=== PATIENT | female | born 1930 | race Caucasian/White ===

== ENCOUNTER 2016-09-08 21:43 | Inpatient (IN) | payer OTHER, MEDICARE ==
[~2016-09-08] VITALS: Ht 147.3 cm; Wt 44.9 kg
--- NOTE | ~2016-09-08 | HC ---
[facility] [place] [address] CONSULTATION Name: CIRILO POON Room #: 247-P ADM IN M.R.#: [id number] Admission: 09/09/16 Attend Phys: Magdalena Gonzalez Discharge: Date of : 29 Report #: [id number] THIS REPORT FOR: //name// CC: Carmelo Felton REASON FOR CONSULTATION: Bradycardia. HISTORY OF PRESENT ILLNESS: The patient is an 86-year-old woman with a history of remote 1990 mitral valve repair. She has permanent atrial fibrillation and has been maintained on warfarin therapy as well as very low dose carvedilol. She was admitted through the emergency department with a large amount of bright red blood per rectum. She has required operative management with administration of 2 units of packed cells, 4 units FFP. In the setting postoperatively, she has had intermittent pauses of her atrial fibrillation. This has been asymptomatic. She denies chest pain, pressure or ischemic type symptoms. She denies a history of near syncope or syncope. She lives in a [facility]. She has had no prior bleeding problems with warfarin. ALLERGIES: She is allergic to PENICILLIN. MEDICATIONS: Include Coumadin 5 mg daily, nifedipine XR 30 mg daily, digoxin 0.25 mg daily, and Carvedilol 25 mg twice daily PAST MEDICAL HISTORY: Medical records have been reviewed and include a history of remote mitral valve repair, permanent atrial fibrillation, appendectomy, scleroderma. 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 . FAMILY HISTORY: Unremarkable for premature coronary artery disease. REVIEW OF SYSTEMS: All systems negative except as that noted above. PHYSICAL EXAMINATION: GENERAL: A pleasant woman in no distress. VITAL SIGNS: Blood pressure is 120/60, heart rate of 80 and irregular, respirations unlabored at 18, 4 feet 10 inches tall, 99 pounds. HEENT: There are neither xanthelasma, subcutaneous xanthomata, oral mucosal or digital cyanosis or kyphoscoliosis present. CHEST: Reveals clear lung ling. CARDIOVASCULAR: Irregularly irregular rhythm with a 2/6 systolic murmur at the left sternal border. ABDOMEN: Soft and nontender. EXTREMITIES: Without cyanosis, clubbing or edema. Radial pulses are 2+. NEUROLOGIC: She is alert with a nonfocal exam. [facility] [address] [place] [address] CONSULTATION Name: CIRILO POON Room #: [facility]- ADM IN .R.#: [id number] Admission: 09/09/16 Attend Phys: Magdalena Gonzalez Discharge: Date of : 29 Report #: [id number] LABORATORY DATA: Sodium 132, potassium 4.3, creatinine 0.6. Troponin 0. INR of 2.1. White count 4.8, hemoglobin 11, hematocrit 32, platelet count 211. Tortuous aorta is noted in KUB. EKG, atrial fibrillation with LVH with repolarization abnormality. IMPRESSION: 1. Permanent atrial fibrillation. 2. Hemorrhoidal bleeding. 3. Hypertension. RECOMMENDATIONS: 1. Hold carvedilol dose right now. 2. Reverse coagulopathy. At this point, I suspect her intermittent bradycardia is related to a combination of factors including her recent surgery and a medication effect. There is no current indication for permanent pacing. We will follow along with you. Thank you for asking me to participate in her care. <ELECTRONICALLY SIGNED> By: Nicolas Torres MD, [facility] 09/10/16 0810 [id number] Nicolas Torres MD, FACC /nt
--- NOTE | ~2016-09-08 | H ---
[facility] [place] [address] [place] [address] HISTORY AND PHYSICAL Name: CIRILO POON Room #: 247-P ADM IN M.R.#: [id number] Admission: 09/09/16 Attend Phys: Magdalena Gonzalez Discharge: Date of : 29 Report #: [id number] THIS REPORT FOR: //name// CC: Carmelo Felton CHIEF COMPLAINT: GI bleeding. HISTORY OF PRESENT ILLNESS: The patient is an 86-year-old female who went to the ER with rectal bleeding. She noted bright red blood just about an hour or so before presenting to the ER. She also passed some nickel-sized clots. She apparently had a hemorrhoid banding as an outpatient on August 29. She has had some spotty bleeding. She does take Coumadin chronically. PAST MEDICAL HISTORY: Scleroderma, cerebrovascular accident, history of pneumonia and valvular heart disease. PAST SURGICAL HISTORY: Appendectomy. FAMILY HISTORY: Noncontributory. SOCIAL HISTORY: She lives with her . No chronic alcohol or tobacco use. ALLERGIES: PENICILLIN. MEDICATIONS: Aspirin 81 mg, Coumadin 5 mg, tramadol, venlafaxine, nifedipine XR 30 mg, omeprazole, digoxin 0.25 mg daily and at carvedilol 3.125 mg daily. REVIEW OF SYSTEMS: She denies headache, chest pain, shortness of breath, abdominal pain, nausea, vomiting, diarrhea, constipation, dysuria or syncope. PHYSICAL EXAMINATION: VITAL SIGNS: Temperature 37, pulse 84, respirations 17, blood pressure 167/85 and O2 sat 90% on room air. GENERAL: She is awake and alert, very hard of hearing. LUNGS: Clear. HEART: Regular. ABDOMEN: Soft. Normoactive bowel sounds. EXTREMITIES: No edema. LABORATORY DATA: INR is 2.1. Hemoglobin 11.4. Dr. Sherman has assessed her and took her back to the operating room and performed a repeat banding procedure to the hemorrhoids. Please see that separately dictated note. ASSESSMENT: 1. Lower gastrointestinal bleed. [facility] [address] [place] [address] HISTORY AND PHYSICAL Name: CIRILO POON Room #: [facility] IN .R.#: [id number] Admission: 09/09/16 Attend Phys: Magdalena Gonzalez Discharge: Date of : 29 Report #: [id number] 2. Internal hemorrhoids bleeding. 3. Chronic anticoagulation with Coumadin. PLAN: She will be watched in ICU additionally for any further signs of bleeding, advance diet as tolerated per surgery. If she is stable tomorrow, she can return home. <ELECTRONICALLY SIGNED> By: Ramirez Paredes MD 09/10/16 1101 1405 1448 Ramirez Paredes MD /nt
--- NOTE | ~2016-09-08 | D ---
[facility] [place] [address] DISCHARGE SUMMARY Name: CIRILO POON Room #: 429-P ADM IN M.R.#: [id number] Admission: 09/09/16 Attend Phys: Magdalena Gonzalez Discharge: Date of : 29 Report #: [id number] THIS REPORT FOR: //name// CC: Carmelo Felton FINAL DIAGNOSES: 1. Lower gastrointestinal bleed. 2. Internal hemorrhoids. 3. Atrial fibrillation. 4. Sick sinus syndrome. 5. Anticoagulation. 6. Acute blood loss anemia. HOSPITAL COURSE: The patient was admitted for lower GI bleed. She just had an internal hemorrhoid banding procedure done recently. She was taken to the operating room by Dr. Sherman and it appeared one of the bands had slipped off. The hemorrhoid in this was the source of bleeding. This was repaired. Please see his dictated report. She did not require a blood transfusion and hemoglobin remained stable around 8. She has had episodes of bradycardia and digoxin was discontinued. She had another episode of bradycardia with pauses, but asymptomatic and Coreg dose was stopped and then lowered to 12.5 mg twice a day. Coumadin was restarted. There was a concern of an episode of dysarthria, may be a TIA. However, MRI of the carotids and carotid ultrasound all were negative. I felt this was more related to a bradycardia episode. PHYSICAL EXAMINATION: GENERAL: On the day of discharge, she was awake and alert. Her speech was clear and she was in no distress. VITAL SIGNS: Stable. LUNGS: Clear. HEART: Irregular. ABDOMEN: Soft. Normoactive bowel sounds. EXTREMITIES: No edema. DISPOSITION: She will be discharged to home with diet and activity as tolerated. Follow up with Dr. Felton in one week and Dr. Torres in one week for Coumadin monitoring. Only medication change will be Coreg 12.5 mg twice a day and stop digoxin. <ELECTRONICALLY SIGNED> By: Ramirez Paredes MD 09/12/16 1221 1043 1115 Ramirez Paredes MD /nt
--- NOTE | ~2016-09-08 | EKG ---
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 : 1930 Requested By: Carmelo Felton Order Number: [id number] MD: Nicolas Torres Measurements Intervals [place] Rate: 57 P: 87 NV: 223 QRS: 69 QRSD: 96 T: 144 QT: 405 QTc: 395 Interpretive Statements Sinus bradycardia Prolonged [place] interval RSR' in V1 or V2, right VCD or RVH Probable LVH with secondary repol abnrm Compared to ECG 09/09/2016 18:40:32 Atrial premature complex(es) no longer present Electronically Signed On 09-12-2016 8:20:29 CDT by Nicolas Torres [email or web address] <ELECTRONICALLY SIGNED> By: Nicolas Torres MD, [facility] 09/12/16 0820 1224 1224 Nicolas Torres MD, [facility] /EPI
--- NOTE | ~2016-09-08 | EKG ---
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 : 1930 Requested By: Ramirez Paredes Order Number: [id number] MD: Nicolas Torres Measurements Intervals [place] Rate: 41 P: 139 KS: 266 QRS: 42 QRSD: 88 T: 142 QT: 426 QTc: 352 Interpretive Statements Sinus bradycardia Prolonged [place] interval RSR' in V1 or V2, right VCD or RVH LVH with secondary repolarization abnormality Compared to ECG 09/09/2016 18:40:32 No significant change was found Electronically Signed On 09-12-2016 8:23:23 CDT by Nicolas Torres [email or web address] <ELECTRONICALLY SIGNED> By: Nicolas Torres MD, [facility] 09/12/16 0823 1359 1359 Nicolas Torres MD, [facility] /EPI
--- NOTE | ~2016-09-08 | EKG ---
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: Magdalena GONZALEZ : 1930 Requested By: Vitaliy Vidal Order Number: [id number] MD: Nicolas Torres Measurements Intervals [place] Rate: 40 P: 105 [place]: 254 QRS: 78 QRSD: 83 T: 214 QT: 418 QTc: 341 Interpretive Statements Sinus bradycardia Atrial premature complexes in couplets Prolonged [place] interval LVH with secondary repolarization abnormality Anterior Q waves, possibly due to LVH Compared to ECG 09/08/2016 22:16:15 Atrial premature complexes are now present Electronically Signed On 09-10-2016 8:33:39 CDT by Nicolas Torres [email or web address] <ELECTRONICALLY SIGNED> By: Nicolas Torres MD, [facility] 09/10/16 0833 1840 1840 Nicolas Torres MD, [facility] /EPI
--- NOTE | ~2016-09-08 | EKG ---
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 : 1930 Requested By: Elif Phelps Order Number: [id number] MD: Nicolas Torres Measurements Intervals [place] Rate: 63 P: 107 [place]: 208 QRS: 79 QRSD: 81 T: 216 QT: 386 QTc: 396 Interpretive Statements Sinus rhythm Atrial premature complexes LVH with secondary repolarization abnormality No previous ECG available for comparison Electronically Signed On 09-09-2016 9:17:49 CDT by Nicolas Torres [email or web address] <ELECTRONICALLY SIGNED> By: Nicolas Torres MD, [facility] 09/09/16 0917 2216 2216 Nicolas Torres MD, [facility]ACC /EPI
--- NOTE | ~2016-09-08 | O ---
[facility] [place] [place] [address] OPERATIVE REPORT Name: CIRILO POON Room #: [facility] IN M.R.#: [id number] Admission: 09/09/16 Attend Phys: Magdalena Gonzalez Discharge: Date of : 29 Report #: [id number] THIS REPORT FOR: //name// CC: Carmelo Felton PREOPERATIVE DIAGNOSES: Rectal hemorrhage following recent hemorrhoidectomy. POSTOPERATIVE DIAGNOSES: Rectal hemorrhage following recent hemorrhoidectomy. PROCEDURE: Rectal examination under anesthesia with control of hemorrhage. SURGEON: Shan Sherman MD. DEFENCE FORCE SENIOR OFFICER: None. ANESTHESIA: General anesthetic, as well as local anesthetic. ESTIMATED BLOOD LOSS: 25 mL. SPECIMENS TO PATHOLOGY: None. COMPLICATIONS: None. INDICATION FOR PROCEDURE: The patient is a very pleasant 86-year-old female, who recently underwent an office procedure at an outside facility, which was a hemorrhoidectomy, apparently with banding. The patient is on Coumadin for chronic atrial fibrillation and was noted to have elevated INR associated with this. She was admitted on approximately 09/08/2016 with significant rectal hemorrhage. She required blood transfusion and FFP was also given to correct her INR. General Surgery was consulted as the patient's initial operating surgeon and was unavailable, after appropriate resuscitation, a decision was made to proceed with rectal examination under anesthetic, with control of rectal hemorrhage. This was because despite efforts of packing with gel foam, she showed signs of active ongoing hemorrhage. Detailed discussion of the risks and benefits of the procedure was held with the patient, and all questions were answered to her satisfaction. Risks including ongoing bleeding, need for future procedure, stricture, postoperative pain, infection, and other unforeseen potential complications were discussed. Written informed consent was obtained. DESCRIPTION OF PROCEDURE: The patient was brought to the operating room and placed in the supine position. A timeout was taken to verify the patient's identity and to plan the procedure. SCDs were in place in the lower extremities bilaterally. Preoperative antibiotics were administered. Anesthesia was induced. The patient was intubated. The patient was then placed in the lithotomy position. Perineum and perianal skin was sterilely prepped and draped in the standard fashion. Speculum was inserted carefully, and examination of the anal canal and rectal mucosa was performed. There was a site of active [address] [address] OPERATIVE REPORT Name: CIRILO POON Room #: 247-P ADM IN M.R.#: [id number] Admission: 09/09/16 Attend Phys: Magdalena Gonzalez Discharge: Date of : 29 Report #: [id number] bleeding at the 11'o clock position with patient in lithotomy. This was an ulceration measuring approximately 1 cm x 2 cm. This did not appear to be arterial but was persistent venous oozing, that was brisk. This was consistent with the site of previous band hemorrhoid ligation. The mucosa was grasped with rat tooth forceps and was approximated with longitudinally oriented 2-0 and 3-0 interrupted chromic gut suture. Hemostasis was noted. The mucosa was infiltrated with 0.5% Marcaine with epinephrine. Surgicel was placed against the site of previous hemorrhage, and the rectal canal was packed with gel foam, soaked with viscous lidocaine. Hemostasis was verified. All counts were correct at the end of the case, and all instrumentation had been extracted and accounted for. At this point, the case was ended. The patient was placed back in supine position. She was then extubated and taken to the postoperative care unit in stable condition. ESTIMATED BLOOD LOSS: 25 mL, which essentially was the coagulum, which was already in the rectum, at the beginning of the operation, which was suctioned clear. By: 0834 1031 Shan Sherman MD /nt
--- NOTE | ~2016-09-08 | HC ---
[facility] [place] [address] [place] [address] CONSULTATION Name: CIRILO POON Room #: 247-P ADM IN M.R.#: [id number] Admission: 09/09/16 Attend Phys: Magdalena Gonzalez Discharge: Date of : 29 Report #: [id number] THIS REPORT FOR: //name// CC: Carmelo Felton DATE OF SERVICE: 09/09/2016 REFERRING PROVIDER: Urban Felton MD REASON FOR CONSULTATION: Rectal hemorrhage. HISTORY OF PRESENT ILLNESS: The patient is an 86-year-old female who presented to the emergency room with a large amount of bright red blood per rectum. The patient reports that she underwent in-office hemorrhoid surgery on 08/29/2016, by Dr. Elvis Adams and has had spotting since surgery. The patient does take Coumadin and as her bleeding was so severe, she presented to the emergency room for evaluation. In the emergency room, the patient was seen to have an overt bleed from just inside the anus and Dr. Adams was contacted, but unfortunately was out of town with no arranged coverage for his practice. As such, I was contacted being the on-call general surgeon to assist in management. As the patient was actively bleeding, I instructed the emergency room physician to place a rolled up Gelfoam soaked in thrombin in the patient's rectum and hold pressure. Reportedly, the bleeding subsided and the patient has now been admitted and transferred to the ICU where I was asked to evaluate from a surgical standpoint. PAST MEDICAL HISTORY: Hypertension, chronic pain, and heart murmur as well as GERD. HOME MEDICATIONS: Omeprazole, Coumadin, Ultram, nifedipine, and carvedilol. ALLERGIES: No known drug allergies. SOCIAL HISTORY: The patient does not utilize tobacco, alcohol, or illicit drugs. FAMILY HISTORY: Reviewed and noncontributory. REVIEW OF SYSTEMS: GENERAL: The patient denies nocturnal fevers or chills. HEENT: No change in vision or change in hearing. NECK: No swelling or difficulty swallowing. HEART: No chest pain or palpitations. LUNGS: No cough or shortness of breath. ABDOMEN: No nausea and no vomiting. GENITOURINARY: No dysuria or hematuria. [facility] [address] [place] [address] CONSULTATION Name: CIRILO POON Room #: 247-P [facility] IN M.R.#: [id number] Admission: 09/09/16 Attend Phys: Magdalena Gonzalez Discharge: Date of : 29 Report #: [id number] ENDOCRINE: No polyuria or polydipsia. HEMATOLOGIC: No history of bleeding or easy bruising. EXTREMITIES: No history weakness or limited range of motion. NEUROLOGIC: No history of syncope or near syncopal episodes. SKIN AND INTEGUMENT: No history of abnormal lesions or moles. PHYSICAL EXAMINATION: VITAL SIGNS: Temperature 98.6, pulse 84, respirations 17, blood pressure 167/85, she stands 4 feet 10 inches tall and weighs 99 pounds. GENERAL: She is alert and oriented, in no acute distress. HEENT: Normocephalic, atraumatic. Pupils are equal, round, and reactive to light. NECK: Supple without lymphadenopathy. Trachea midline. HEART: Regular rate and rhythm with a 3/6 ejection murmur in the left sternal border. LUNGS: Clear to auscultation bilaterally. ABDOMEN: Soft, nontender, and nondistended. GENITOURINARY: Normal external female genitalia. EXTREMITIES: No clubbing, cyanosis, or edema. NEUROLOGIC: Cranial nerves 2-12 are grossly intact. PSYCHIATRIC: Normal mood and affect. SKIN AND INTEGUMENT: No abnormal lesions or moles. RECTAL: Shows a Gelfoam in place with no active bleeding whatsoever. LABORATORY AND X-RAY DATA: CBC showed a white blood cell count of 4.8 thousand, current hemoglobin is 11.4, and platelets 211,000. Creatinine 0.6. Liver function enzymes are normal. INR was 2.7 with a PTT of 42.8. ASSESSMENT AND PLAN: This is an 86-year-old female who is approximately 11 days out from some sort of in-office hemorrhoidectomy procedure. I am not sure if this was a true excisional procedure or rubber band ligation of an internal hemorrhoid as the patient cannot give me specifics and there was no operative report in our system since it was done in the office by Dr. Elvis Adams. Nonetheless, there did appear to be bleeding from the rectum that has now stopped with pressure and Gelfoam application. My recommendation at the present time is to continue to monitor H and H, let her have diet as tolerated and if she rebleed, she may necessitate proceeding to the operating room for exam under anesthesia for definitive control. I sincerely appreciate this consult. I will follow along and leave any further recommendations in the patient's chart as appropriate. <ELECTRONICALLY SIGNED> By: Phi Conte MD, FACS 09/09/16 1504 0901 1127 Phi Conte MD, FACS /nt
--- NOTE | ~2016-09-08 | HC ---
[facility] [place] [address] CONSULTATION Name: CIRILO POON Room #: 429-P [facility] M.R.#: [id number] Admission: 09/09/16 Attend Phys: Magdalena Gonzalez Discharge: 09/12/16 Date of : 28 Report #: [id number] THIS REPORT FOR: //name// CC: Carmelo Felton DATE OF SERVICE: 09/11/2016 HISTORY OF PRESENT ILLNESS: This is an 86-year-old female patient who was admitted with a complicated history. Neurological consultation is being requested for an episode of speech difficulty she had. Nurses noticed that she garbled her words this afternoon. She does not remember much about it. It lasted for a short period of time. She said she never had this kind of episode before. She does not know what brought it on. It basically came in suddenly and then it resolves suddenly. REVIEW OF SYSTEMS: Complicated. This patient has a history of atrial fibrillation. She is on chronic anticoagulation. During this hospitalization, she had episodes of bradycardia. She also has GI bleeding. Therefore, Coumadin has been discontinued and it was going to be restarted. When this episode occurred, her hemoglobin also fell from 8.1 to 7.6. She feels back to her baseline now. 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 She does not complain of any new eye, ENT, respiratory, , musculoskeletal, constitutional, dermatological, hematological, psychiatric, throat, endocrine. Allergic symptom associated with present symptomatology. PAST MEDICAL HISTORY: Positive for atrial fibrillation. FAMILY HISTORY: Negative for early age stroke. SOCIAL HISTORY: The patient does not smoke or drink alcohol. PHYSICAL EXAMINATION: Indicate she is alert. She is a responsive. She is oriented. Her memory and fund of knowledge is poor. Her speech, concentration looks intact. Cranial nerve examination 2-12 is unremarkable. She has symmetrical strength, sensation, reflexes and tone in all 4 extremities. There is no cerebellar sign. There is no carotid bruit. There is no meningeal sign. She is a thin built individual who does not have any dysmorphic features of eyes, ears and face. Her hearing and vision looks adequate. She does not have a thyroid mass. She does have a murmur in the heart. Heart sounds looks unremarkable. She has prominent atrial fibrillation. There is no respiratory difficulty and there is no rhonchi on either side. Her pulses are palpable. She has no edema, cyanosis or jaundice. Vital signs indicate a blood pressure of 121/56, respirations 18, pulse is 81, temperature is 98.1. LABORATORY DATA: Indicate a hemoglobin has dropped to 7.6 and presently she is getting transfusion. Her platelet count is low at 131. Her sodium is also low [address] [address] CONSULTATION Name: CIRILO POON Room #: 429-P [facility] M.R.#: [id number] Admission: 09/09/16 Attend Phys: Magdalena Gonzalez Discharge: 09/12/16 Date of : 28 Report #: [id number] at 132. She did have a CT scan of the head and that was reviewed and that does not show any acute abnormality. IMPRESSION: 1. This patient's episode is consistent with a transient ischemic attack. She is not anticoagulated at the moment. It is possible she threw a small emboli and it may or may not have caused any stroke. I think it will be desirable to confirm that because if it is a small stroke. They are typically embolic strokes and they tend to become hemorrhagic. 2. We will rule out any carotid stenosis by doing a carotid Doppler in this patient. 3. She is slightly hyponatremic. 4. She has anemia. 5. I am not sure she is a candidate for any intervention even we find anything in this patient. She is not at TPA candidate because she is having active bleeding and she will not be intervention candidate because her score is a bit too low. Her platelet is low and that will be partly protected from cardioembolic phenomenon. I will suggest some workup for above. RECOMMENDATIONS: 1. MRI of the brain. 2. MRA of the head. 3. Few blood workup as ordered. 4. Start anticoagulation as soon as seemed reasonable. 5. Continue management of atrial fibrillation per cardiology. We will look at the patient's MRI and a carotid Doppler and follow up this patient with you. Thank you very much for this referral. <ELECTRONICALLY SIGNED> By: Marlon Jones MD 09/13/16 [id number] Marlon Jones MD /nt
[2016-09-08 22:00] VITALS: BP 146/68
[2016-09-08 22:27] LABS: ABSOLUTE NEUTROPHILS 3.1 thou/uL (1.4-8.2); BASOPHILS 0.8 % (0.0-2.0); EOSINOPHILS 2.8 % (0.0-3.0); HEMATOCRIT 32.4 % (37.0-47.0); LYMPHOCYTES 20.4 % (24.0-44.0); MCH 30.6 pg (26.0-34.0); MCHC 33.8 g/dL (28.0-37.0); MCV 90.5 fL (80.0-100.0); MONOCYTES 10.5 % (1.0-8.0); PLATELET COUNT 211 thou/uL (150-400); POLYS 65.5 % (36.0-66.0); RBC 3.58 mil/uL (4.20-5.00); RDW 13.4 % (10.5-14.5); WBC 4.8 thou/uL (4.0-11.0)
[2016-09-08] MEDS ORDERED: ULTRAM 50MG TAB50 MG PO (22:27)
[2016-09-08] MEDS ORDERED: OMEPRAZOLE10 MG PO (22:27)
[2016-09-08] MEDS ORDERED: COUMADIN 5 MG TA5 M1 PO (22:27)
[2016-09-08] MEDS ORDERED: PROCARDIA XL30 MG PO (22:28)
[2016-09-08] MEDS ORDERED: COREG25 MG PO (22:29)
[2016-09-08 22:36] LABS: MANUAL DIFF NO
[2016-09-08 22:39] LABS: APTT 42.8 Seconds (24.5-32.8); INR 2.7; PROTIME 27.8 Seconds (9.3-11.4)
[2016-09-08 22:41] LABS: ALBUMIN 3.2 g/dL (3.4-5.0); ALKALINE PHOSPHATASE 66 U/L (46-116); ANION GAP 7 mmol/L (7-16); BUN 22 mg/dL (7-18); CALCIUM 8.9 mg/dL (8.5-10.1); CHLORIDE 95 mmol/L (98-107); CO2 30 mmol/L (21-32); CREATININE 0.6 mg/dL (0.6-1.3); GLUCOSE 100 mg/dL (70-99); POTASSIUM 4.3 mmol/L (3.5-5.1); SGOT 22 U/L (15-37); SGPT 20 U/L (30-65); SODIUM 132 mmol/L (136-145); TOTAL BILIRUBIN 0.3 mg/dL (<0.1-1.0); TOTAL PROTEIN 7.4 g/dL (6.4-8.2)
[2016-09-08 22:56] LABS: TROPONIN-I < 0.04 ng/mL (<0.04-0.07)
[2016-09-09] VITALS (65 sets, daily range): BP systolic 103–195; BP diastolic 47–167
[2016-09-09 00:10] LABS: HEMATOCRIT 29.9 % (37.0-47.0); HEMOGLOBIN 10.3 gm/dL (12.0-15.0)
[2016-09-09 03:18] LABS: HEMATOCRIT 24.2 % (37.0-47.0)
[2016-09-09 03:24] LABS: HEMOGLOBIN 8.1 gm/dL (12.0-15.0)
[2016-09-09 08:39] LABS: HEMATOCRIT 32.5 % (37.0-47.0)
[2016-09-09 08:41] LABS: HEMOGLOBIN 11.4 gm/dL (12.0-15.0)
[2016-09-09 11:25] LABS: INR 2.1; PROTIME 21.7 Seconds (9.3-11.4)
[2016-09-09 18:57] LABS: CALCIUM 7.9 mg/dL (8.5-10.1); CREATININE 0.5 mg/dL (0.6-1.3); MAGNESIUM 1.4 mg/dL (1.8-2.4)
[2016-09-09 19:09] LABS: POTASSIUM 3.2 mmol/L (3.5-5.1)
[2016-09-10] VITALS (13 sets, daily range): BP systolic 82–163; BP diastolic 42–110
[2016-09-10 04:40] LABS: ABSOLUTE NEUTROPHILS 5.9 thou/uL (1.4-8.2); BASOPHILS 0.3 % (0.0-2.0); CALCIUM 7.9 mg/dL (8.5-10.1); CREATININE 0.4 mg/dL (0.6-1.3); EOSINOPHILS 1.1 % (0.0-3.0); HEMATOCRIT 23.3 % (37.0-47.0); LYMPHOCYTES 10.3 % (24.0-44.0); MAGNESIUM 1.7 mg/dL (1.8-2.4); MCHC 35.4 g/dL (28.0-37.0); MCV 90.5 fL (80.0-100.0); MONOCYTES 6.8 % (1.0-8.0); POLYS 81.5 % (36.0-66.0); RBC 2.57 mil/uL (4.20-5.00); RDW 13.8 % (10.5-14.5); WBC 7.2 thou/uL (4.0-11.0)
[2016-09-10 04:44] LABS: HEMOGLOBIN 8.2 gm/dL (12.0-15.0); PLATELET COUNT 114 thou/uL (150-400)
[2016-09-10 04:45] LABS: INR 1.4; PROTIME 14.5 Seconds (9.3-11.4)
[2016-09-10 04:48] LABS: POTASSIUM 2.8 mmol/L (3.5-5.1)
[2016-09-10 07:28] LABS: MANUAL DIFF NO
[2016-09-10 11:43] LABS: MAGNESIUM 2.4 mg/dL (1.8-2.4)
[2016-09-11] VITALS (7 sets, daily range): BP systolic 99–134; BP diastolic 47–70
[2016-09-11 05:45] LABS: HEMATOCRIT 23.1 % (37.0-47.0); HEMOGLOBIN 8.1 gm/dL (12.0-15.0); MCV 91.3 fL (80.0-100.0); RBC 2.53 mil/uL (4.20-5.00); RDW 14.2 % (10.5-14.5); WBC 7.4 thou/uL (4.0-11.0)
[2016-09-11 05:55] LABS: INR 1.1; PROTIME 11.9 Seconds (9.3-11.4)
[2016-09-11 06:07] LABS: CALCIUM 8.6 mg/dL (8.5-10.1); CREATININE 0.6 mg/dL (0.6-1.3); MAGNESIUM 1.9 mg/dL (1.8-2.4); POTASSIUM 3.2 mmol/L (3.5-5.1)
[2016-09-11 12:56] LABS: BASOPHILS 0.3 % (0.0-2.0); EOSINOPHILS 1.1 % (0.0-3.0); HEMATOCRIT 21.5 % (37.0-47.0); HEMOGLOBIN 7.6 gm/dL (12.0-15.0); MCH 32.2 pg (26.0-34.0); MCHC 35.3 g/dL (28.0-37.0); MCV 91.2 fL (80.0-100.0); MONOCYTES 7.7 % (1.0-8.0); PLATELET COUNT 131 thou/uL (150-400); POLYS 81.9 % (36.0-66.0); RBC 2.36 mil/uL (4.20-5.00); RDW 14.2 % (10.5-14.5); WBC 8.5 thou/uL (4.0-11.0)
[2016-09-11 12:59] LABS: ANION GAP 3 mmol/L (7-16); BUN 12 mg/dL (7-18); CALCIUM 8.2 mg/dL (8.5-10.1); CHLORIDE 101 mmol/L (98-107); CO2 28 mmol/L (21-32); CREATININE 0.5 mg/dL (0.6-1.3); GLUCOSE 96 mg/dL (70-99); SODIUM 132 mmol/L (136-145)
[2016-09-11 13:00] LABS: APTT 30.7 Seconds (24.5-32.8); FIBRINOGEN 325.2 mg/dL (210-360); INR 1.2
[2016-09-11 13:01] LABS: MANUAL DIFF NO
[2016-09-11 13:06] LABS: MAGNESIUM 1.7 mg/dL (1.8-2.4); TROPONIN-I < 0.04 ng/mL (<0.04-0.07)
[2016-09-12 04:00] VITALS: BP 131/61
[2016-09-12 05:13] LABS: HEMATOCRIT 24.8 % (37.0-47.0); HEMOGLOBIN 8.7 gm/dL (12.0-15.0); MCH 31.8 pg (26.0-34.0); MCHC 35.1 g/dL (28.0-37.0); MCV 90.4 fL (80.0-100.0); RBC 2.75 mil/uL (4.20-5.00); RDW 14.4 % (10.5-14.5); WBC 7.1 thou/uL (4.0-11.0)
[2016-09-12 05:21] LABS: INR 1.1; PROTIME 11.7 Seconds (9.3-11.4)
[2016-09-12 05:36] LABS: CALCIUM 8.3 mg/dL (8.5-10.1); CREATININE 0.5 mg/dL (0.6-1.3); POTASSIUM 3.7 mmol/L (3.5-5.1)
[2016-09-12 08:24] VITALS: BP 145/82
[2016-09-12] MEDS ORDERED: CARVEDILOL12.5 MG PO (10:34)
[2016-09-12 15:16] VITALS: BP 145/82
[2016-09-12 15:59] LABS: TSH 0.747 uIU/mL (0.358-3.740)
[2016-09-13 15:30] VITALS: BP 145/82
== END 2016-09-12 15:56 | disposition home or self-care (01) | DRG 347 ==
LOC: ER 21:43 → ICU 09-09 03:52 → 4E 09-10 17:04
PROVIDERS: Emergency Medicine; Internal Medicine; Internal Medicine Geriatric Medicine; Otolaryngology; Psychiatry & Neurology Neuromuscular Medicine
PROC: 0W3P7ZZ Control Bleeding in Gastrointestinal Tract, Via Natural or Artificial Opening (ICD-10-PCS; principal; 2016-09-09)
PROC: 30233L1 Transfusion of Nonautologous Fresh Plasma into Peripheral Vein, Percutaneous Approach (ICD-10-PCS; 2016-09-09)
PROC: 30233K1 Transfusion of Nonautologous Frozen Plasma into Peripheral Vein, Percutaneous Approach (ICD-10-PCS; 2016-09-09)
PROC: 30233N1 Transfusion of Nonautologous Red Blood Cells into Peripheral Vein, Percutaneous Approach (ICD-10-PCS; 2016-09-09)
DX: K92.2 Gastrointestinal hemorrhage, unspecified (principal); T81.19XA Other postprocedural shock, initial encounter; D62 Acute posthemorrhagic anemia; D68.59 Other primary thrombophilia; G45.9 Transient cerebral ischemic attack, unspecified; Y83.8 Other surgical procedures as the cause of abnormal reaction of the patient, or of later complication, without mention of misadventure at the time of the procedure; G89.29 Other chronic pain; I48.2 Chronic atrial fibrillation; K21.9 Gastro-esophageal reflux disease without esophagitis; I49.5 Sick sinus syndrome; I10 Essential (primary) hypertension; Z87.01 Personal history of pneumonia (recurrent); Z79.01 Long term (current) use of anticoagulants; Z95.2 Presence of prosthetic heart valve; Z88.0 Allergy status to penicillin; Z90.49 Acquired absence of other specified parts of digestive tract
CPT/HCPCS: 10078; 10783; 50101; 50386; 56524; 56526; 56639; 57092